=== PATIENT | male | born 1935 | race Caucasian/White ===

== ENCOUNTER → 2020-09-28 02:25 | Outpatient (CLI) | payer MEDICARE, BC, SELFPAY ==
[2020-09-29 16:34] LABS: SARS-CoV-2 RNA PCR Negative
== END ==
PROVIDERS: PCP Family Medicine; Visit Provider Internal Medicine Critical Care Medicine
DX: R68.89 Other general symptoms and signs (principal); Z20.822 Contact with and (suspected) exposure to COVID-19
CPT/HCPCS: C9803; U0003; U0005

== ENCOUNTER 2020-09-30 08:39 | Outpatient (CLI) | payer MEDICARE, BC, SELFPAY ==
--- NOTE | 2020-10-17 19:16 | WPDSLEEPSTUD ---
Sleep Study Date of Study: 09/30/20 Ordering Provider: Dontae Corral APRN Interpreting Physician: Melly Kern MD Sleep Study Type: BiPAP Titration Height: 1.78 m Weight: 117.934 kg Body Mass Index: 37.3 Neck Circumference (inches): 19 Clyde: 16 Reason for Sleep Study Patient is on BiPAP 28/03 with excellent compliance. Average usage 10.4 hours per night, predominately central events. His last sleep study was in 2013 and patient has been on the same pressure since and patient is having daytime fatigue and napping. Sleep History Gerald Bloom is 85 years old, has COPD and obstructive sleep apnea. He has been on BiPAP for several years. He is compliant however the last compliance report shows that he has increased events mainly centrals. I do not have the report to review a but this was in his note. He now presents for a repeat BiPAP titration. His last BiPAP titration was in 2013. He did not complete the sleep questionnaire. [facility] Past Medical History Medical History (Updated 10/17/20 @ 19:33 by Melly Kern MD) Anemia COPD (chronic obstructive pulmonary disease) Essential (primary) hypertension Hyperlipidemia Hypertensive chronic kidney disease with stage 1 through stage 4 chronic kidney disease, or unspecified chronic kidney disease Memory loss HEIDI (obstructive sleep apnea) Squamous cell carcinoma of skin of left cheek Type 2 diabetes mellitus without complications Vascular disease Family History Family History Sibling Patient's sister is in good health Patient's brother is in good health Social History Social History Smoking packs per day: 1 Smoking cigarettes per day: 20.0 Smoking status: Former smoker Second hand tobacco smoke exposure: No Smoking end date: 04/09/04 Alcohol intake: current Alcohol use details: rare Substance use: never Substance use type: does not use Gender identity (if verbalized by the patient): Male Medications Home Medications Medication Instructions Recorded Confirmed Type cyanocobalamin (vitamin B-12) 1,000 mcg PO DAILY 02/26/19 08/31/20 History 1,000 mcg capsule aspirin 81 mg tablet,delayed 325 mg PO DAILY tablet 03/03/19 08/31/20 History release budesonide-formoterol HFA 160 2 puff INHALATION Q12H 09/02/19 08/31/20 History mcg-4.5 mcg/actuation aerosol inhaler blood sugar diagnostic #100 each 12/29/19 08/31/20 Rx sitagliptin 100 mg tablet See Rx Instructions .ROUTE 01/02/20 08/31/20 Rx .COMPLEX #90 tablet olmesartan 40 1 tablet PO DAILY #90 tablet 01/20/20 08/31/20 Rx mg-hydrochlorothiazide 25 mg tablet metformin 500 mg tablet,extended 2,000 mg PO DAILY #360 tablet 03/19/20 08/31/20 Rx release 24 hr tamsulosin 0.4 mg capsule See Rx Instructions .ROUTE 06/24/20 08/31/20 Rx .COMPLEX #180 cap ferrous sulfate 325 mg (65 mg 325 mg .ROUTE .COMPLEX #90 tablet 07/13/20 08/31/20 Rx iron) tablet eszopiclone 2 mg tablet 2 mg PO QHS #1 tablet 08/31/20 08/31/20 Rx atorvastatin 40 mg tablet See Rx Instructions .ROUTE 09/13/20 Rx .COMPLEX #90 tablet potassium chloride 10 mEq See Rx Instructions .ROUTE 09/13/20 Rx capsule,extended release .COMPLEX #180 cap Sleep Procedure This test was performed using the Viewdle multiple channel system including EOG, EEG, submental EMG, EKG, nasal and oral airflow using thermistors and nasal pressure sensors, chest and abdominal belts for body position data, and pulse oximetry. Video monitoring was also performed. The study was scored using CMS guidelines. He self-administered eszopiclone 2 mg at the beginning of the study. The patient was started on BiPAP using a medium Quattro Mirage fullface mask and heated humidifier. At home he uses 20/12, and was started on this pressure as he could not tolerate any pressure below this. At a pressure of 21/16 he spent 3 ho
[2020-10-17 19:18] VITALS: BMI 37.3
== END 2020-10-01 06:24 | disposition home or self-care (01) ==
LOC: ANHCSM 08:41
PROVIDERS: PCP Family Medicine; Visit Provider Nurse Practitioner Family
DX: G47.33 Obstructive sleep apnea (adult) (pediatric) (principal)
CPT/HCPCS: 95811

== ENCOUNTER 2023-12-27 07:13 | Outpatient (CLI) | payer MEDICARE, BC, SELFPAY ==
[2023-12-27 18:40] LABS: Hematocrit 42.8 % (42.0-52.0); Hemoglobin 13.2 g/dL (14.0-18.0); Mean Corpuscular HGB Conc 30.8 g/dl (32-36); Mean Corpuscular Volume 94.1 fl (80-100); Mean Platelet Volume 9.9 fl (7.4-10.4); Platelet Count Result 306 k/mm3 (150-375); Red Blood Count 4.55 M/mm3 (4.6-6.20); Red Cell Distribution Width 14.1 % (11.5-14.5); White Blood Count 5.5 K/mm3 (4.5-10.0)
[2023-12-27 19:03] LABS: Alanine Aminotransferase 23 U/L (6-50); Albumin Level 4.1 g/dL (3.5-5.1); Alkaline Phosphatase 74 U/L (38-126); Anion Gap 11 mmol/L (4-12); Aspartate Amino Transferase 51 U/L (17-59); Bilirubin,Total 0.9 mg/dL (0.2-1.3); Blood Urea Nitrogen 9 mg/dL (9-20); Calcium 9.4 mg/dL (8.4-10.2); Carbon Dioxide 23 mmol/L (22-30); Chloride 103 mmol/L (98-107); Cholesterol 126 mg/dL (0-200); Estimated Glomerular Filt Rate > 60; Glucose 147 mg/dL (65-110); HDL Direct 45 mg/dL; Potassium 4.3 mmol/L (3.4-5.0); Sodium 137 mmol/L (137-145); Triglycerides 112 mg/dL (<150)
[2023-12-27 19:14] LABS: LDL Cholesterol Direct 65 mg/dL
[2023-12-27 20:11] LABS: Microalbumin Urine Random 9.1 mg/L (0-16.7)
[2023-12-27 20:13] LABS: Creatinine Urine 151.1 mg/dL
[2023-12-27 21:42] LABS: Hemoglobin A1C 6.8 % (<5.7)
== END 2023-12-27 07:14 | disposition home or self-care (01) ==
PROVIDERS: PCP Family Medicine; Visit Provider Family Medicine
DX: E11.9 Type 2 diabetes mellitus without complications (principal); I10 Essential (primary) hypertension; E78.5 Hyperlipidemia, unspecified; J44.9 Chronic obstructive pulmonary disease, unspecified; I48.91 Unspecified atrial fibrillation; Z68.36 Body mass index [BMI] 36.0-36.9, adult
CPT/HCPCS: 36415; 80053; 80061; 82043; 83036; 84443; 85027

== ENCOUNTER 2024-06-17 12:20 | Outpatient (CLI) | payer MEDICARE, BC, SELFPAY ==
--- OUTSIDE RECORDS SUMMARY | 2024-06-17 13:41 | XMS_ITS | Clinical Summary ---
Author Organization [facility] Address [address], [place] [address] Phone Care Team Providers Care Tablet Coater Name Role Phone Unavailable Primary Care Provider Unavailabl e Medications Medication Sig Dispensed Refills Start Date End Date Status aspirin 325 MG EC tablet 1 tab/cap qday 08/16/2014 Active metFORMIN (GLUCOPHAGE) 500 MG tablet 1 tab/cap bid 08/16/2014 Active glipiZIDE (GLUCOTROL XL) 2.5 MG 24 hr tablet 1 tab/cap qday 08/16/2014 A ctive atorvastatin (LIPITOR) 40 MG tablet 1 tab/cap qday 08/16/2014 Active olmesartan-hydroCHLOROthi azide (BENICAR HCT) 40-25 MG per tablet 1 tab/cap qday 08/16/2014 Active tamsulosin (FLOMAX) 0.4 MG 24 hr capsule 1 tab/cap qday 08/16/2014 Acti ve Active Problems Problem Noted Date Diagnosed Date Type 2 diabetes mellitus wit h diabetic chronic kidney disease 04/13/2015 Hypertensive chronic kidney disease with stage 1 through stage 4 chronic kidney disease, or unspecified chronic kidney disease 04/13/2015 Chronic kidney disease, stage 2 (mild) 6 Chronic kidney disease 08/16/2014 Essential (primary) hypertension 08/16/2014 Type 2 diabetes mellitus with diabetic nephropat hy 08/16/2014 Other hyperlipidemia 08/16/2014 Overview (06/22/2018): Converted unresolved ICD9, potential mismatch. Benign prostatic hyperplasia without lower urinary tract symptom 08/16/2014 Immunizations Name Administration Dates Next Due Influenza TIV (IM) 04/14/2015 Pneumococcal Conjugate 13-Valent 04/14/2015 Zoster 04/14/2015 Family History Medical History Relation Comments Kidney disease Neg Hx Kidney stone Neg Hx Social History Tobacco Use Types Packs/Day Years Used Date Smoking Tobacco: Never Assessed Sex and Gender Information Value Date Recorded Sex Assigned at Not on file Gender Identity Not on file Sexual Orientation Not on file Last Filed Vital Signs Vital Sign Reading Time Taken Comments Blood Pressure 134/76 04/14/2015 12:01 AM BUILDING STONECUTTER Sitting, Right Pulse - - Temperature 37.3 C (99.2 F) 04/14/2015 12:01 AM BUILDING STONECUTTER Respiratory Rate - - Oxygen Saturation - - Inhaled Oxygen Concentration - - Weight 133 kg (294 lb) 04/14/2015 12:01 AM BUILDING STONECUTTER Height 177.8 cm (5' 10 ) 04/14/2015 12: 01 AM BUILDING STONECUTTER Body Mass Index 42.18 04/14/2015 12:01 AM BUILDING STONECUTTER Plan of Treatment Not on file
--- OUTSIDE RECORDS SUMMARY | 2024-06-17 13:41 | XMS_ITS | Referral Summary ---
Author Organization [facility] Address [facility] [place] [address] Care Team Providers Care Graduate Recruiter Name Role Phone Bairon Wheat MD Primary Care Provider Allergies No known active allergies Medications atorvastatin (LIPITOR) 40 mg tablet Take 1 tablet (40 mg total) by mouth daily Active potassium chloride ER (KLOR-CON) 10 mEq CR tablet Take 1 tablet/caps ule (10 mEq total) by mouth daily Active metFORMIN (FORTAMET) 500 mg 24 hr tablet Take 1 tablet (500 mg total) by mouth 2 (two) times a day with meals Active tamsulosin (FLOMAX) 0.4 mg extended release capsule 1 capsule (0.4 mg total) Active SITagliptin (JANUVIA) 100 mg tabletIndicati ons:type 2 diabetes mellitus Take 1 tablet (100 mg total) by mouth daily Active apixaban (ELIQUIS) 5 mg tablet Take 1 tablet (5 mg total) by mouth 2 (two) times a day Active olmesartan-hyd rochlorothiazi de (BENICAR HCT) 40-25 mg per tablet TAKE 1 TABLET BY MOUTH DAILY 90 tablet 2 5 Active olmesartan-hyd rochlorothiazi de (BENICAR HCT) 40-25 mg per tablet Take 1 tablet by mouth daily 90 tablet 2 4 06/02/19 25 Discontinued Active Problems Problem Noted Date Diagnosed Date Hypertension associated with diabetes 02/03/2022 Mixed diabetic hyperlipidemi a associated with type 2 diabetes mellitus 02/03/2022 Chronic anticoagulation 02/03/2022 Atrial fibrillation 02/03/2022 HEIDI treated with BiPAP 02/03/2022 Class 2 severe obesity due t o excess calories with serious comorbidity and body mass index (BMI) of 35.0 to 35.9 in adult 02/03/2022 Social History Tobacco Use Types Packs/Day Years Used Date Smoking Tobacco: Former Cigarettes Q uit: 1994 Smokeless Tobacco: Never Tobacco Cessation:Counseling Given: Not Answered Sex and Gender Information Value Date Recorded Sex Assigned at Not on file Legal Sex Male 1:07 PM DIRECT SERVICE PROVIDER Gender Identity Not on file Sexual Orientation Not on file Last Filed Vital Signs Vital Sign Reading Time Taken Comments Blood Pressure 122/56 02/19/2024 9:41 AM DIRECT SERVICE PROVIDER Pulse 102 02/19/2024 9:41 AM DIRECT SERVICE PROVIDER Temperature - - Respiratory Rate - - Oxygen Saturation 96% 02/19/2024 9:41 AM DIRECT SERVICE PROVIDER Inhaled Oxygen Concentration - - Weight 117 kg (258 lb) 02/19/2024 9:41 AM DIRECT SERVICE PROVIDER Height 180.3 cm (5' 11 ) 02/19/2024 9:41 AM DIRECT SERVICE PROVIDER Body Mass Index 35.98 02/19/2024 9:41 AM DIRECT SERVICE PROVIDER Plan of Treatment Not on file Procedures Procedure Name Priority Date/Time Associated Diagnosis Comments LIPID PANEL Routine 12/27/2023 4:01 PM CDT from Last 3 Months or Most Recently Relevant to Health Maintenance Results * (ABNORMAL) Lipid panel (12/27/2023 4:01 PM CDT) SCRIBED Cholesterol, Total 126 0 - 200 EXTERNAL LAB SCRIBED HDL 45 40 - 100 EXTERNAL LAB SCRIBED LDL 65 0 - 100 EXTERNAL LAB SCRIBED Triglycerides 112 0 - 150 EXTERNAL LAB Blood us Historical Provider LAB BLOOD ORDERABLES Edit ed Result - Final EXTERNAL LAB from Last 3 Months or Most Recently Relevant to Health Maintenance Insurance [employer] MEDICARE [employer] MEDICARE Care Teams Graduate Recruiter Relationship Specialty Start Date End Date Bairon Wheat MD [address] [facility] [address] [place] [address] PCP - General Family Medicine 03/14/22
--- OUTSIDE RECORDS SUMMARY | 2024-06-17 13:41 | XMS_ITS | Clinical Summary ---
Author Organization [facility] Address [address] [place] [address] Care Team Providers Care Associate Property Manager Name Role Phone Bairon Wheat MD Primary [...] of 35.0 to 35.9 in adult 02/03/2022 Surgical History Surgery Date Site/Laterality Comments BACK SURGERY Medical History Medical History Date Comments Atrial fibrillation (HCC) Anemia COPD (chronic obstructive pulmonary disease) (HC C) Hyperlipidemia Sleep apnea Chronic kidney disease Squamous cell carcinoma of skin of left cheek Diabetes mellitus (HCC) Family History Medical History Relation Name Comments ulcer Father Diabetes Mother Relation Name Status Comments Father Mother Social History Tobacco Use Types Packs/Day Years Used Date Smoking Tobacco: Former Cigarettes Q uit: 1994 Smokeless Tobacco: Never Tobacco Cessation:Counseling Given: Not Answered Sex and Gender Information Value Date Recorded Sex Assigned at Not on file Legal Sex Male 1:07 PM IMPREGNATOR AND DRIER Gender Identity Not on file Sexual Orientation Not on file Obstetrics History Last Filed Vital Signs Vital Sign Reading Time Taken Comments Blood Pressure 122/56 02/19/2024 9:41 AM IMPREGNATOR AND DRIER Pulse 102 02/19/2024 9:41 AM IMPREGNATOR AND DRIER Temperature - - Respiratory Rate - - Oxygen Saturation 96% 02/19/2024 9:41 AM IMPREGNATOR AND DRIER Inhaled Oxygen Concentration - - Weight 117 kg (258 lb) 02/19/2024 9:41 AM IMPREGNATOR AND DRIER Height 180.3 cm (5' 11 ) 02/19/2024 9:41 AM IMPREGNATOR AND DRIER Body Mass Index 35.98 02/19/2024 9:41 AM IMPREGNATOR AND DRIER Plan of Treatment Health Maintenance Due Date Last Done Comments Albumin Creatinine Ratio, Urine 1936 Depression Screening 1936 Fall Risk Assessment 1936 Hemoglobin A1C 1936 eGFR 1936 Dilated Eye Exam 1936 Foot Exam 1936 DTaP/Tdap/Td Vaccine (1 - Tdap) 01/02/1947 Hepatitis B Screening 01/02/1954 Well Visit 65+ 01/02/2001 Zoster Vaccine (2 of 3) 06/09/2015 04/14/2015 Pneumococcal vaccine 65+ (2 of 2 - PPSV23) 01/17/2018 11/22/2017, 04/14/2015 Covid-19 Vaccine (5 - 2023-2 5 season) 2023 01/08/2022, 2021, 06/01/2020, Additional history exists Influenza Vaccine (#1) 2023 , 12/25/2020, 11/28/2019, Additional history exists Lipid Panel 12/26/2024 12/27/2023, 04/0 05/2023, 02/03/2022 Procedures Procedure Name Priority Date/Time Associated Diagnosis [...] Most Recently Relevant to Health Maintenance Insurance [facility] MEDICARE TRADITIONAL OOS MEDICARE Care Teams Associate Property Manager Relationship Specialty Start Date End Date Bairon Wheat MD [address] [place] [address] PCP - General Family Medicine 03/14/22
[2024-06-17 20:02] LABS: Alanine Aminotransferase 19 U/L (6-50); Albumin Level 4.1 g/dL (3.5-5.1); Alkaline Phosphatase 69 U/L (38-126); Anion Gap 10 mmol/L (4-12); Aspartate Amino Transferase 41 U/L (17-59); Blood Urea Nitrogen 12 mg/dL (9-20); Calcium 9.3 mg/dL (8.4-10.2); Carbon Dioxide 23 mmol/L (22-30); Chloride 106 mmol/L (98-107); Estimated Glomerular Filt Rate > 60; Glucose 224 mg/dL (65-110); Potassium 4.6 mmol/L (3.4-5.0); Sodium 139 mmol/L (137-145)
[2024-06-17 20:07] LABS: Creatinine Urine 129.9 mg/dL
[2024-06-17 20:12] LABS: MALB Creatinine Ratio 8.1 mg/g (0-30); Microalbumin Urine Random 10.5 mg/L (0-16.7)
[2024-06-17 20:30] LABS: Prostate Specific Antigen 0.7 ng/mL (< OR = 4.0)
== END 2024-06-17 12:21 | disposition home or self-care (01) ==
PROVIDERS: PCP Family Medicine; Visit Provider Family Medicine
DX: E11.9 Type 2 diabetes mellitus without complications (principal); I10 Essential (primary) hypertension; E78.5 Hyperlipidemia, unspecified; J44.9 Chronic obstructive pulmonary disease, unspecified; Z00.00 Encounter for general adult medical examination without abnormal findings; R35.1 Nocturia
CPT/HCPCS: 36415; 80053; 82043; 83036; 84153

== ENCOUNTER 2025-02-16 07:48 | Outpatient (CLI) | payer MEDICARE, BC, SELFPAY ==
--- OUTSIDE RECORDS SUMMARY | 2009-07-08 03:00 | XMS_ITS | Continuity of Care Document ---
Author Organization [facility] [place], [place] Address [address] [place] [address] Phone Care Team Providers Care Poultry Pinner Name Role Phone Kessler OD, Elroy Unavailable Unavailable Procedures Procedure Date Eye Exam & Treatment Refraction Dilated Retinal Exam W Interpretation Ap No Evidence Of Retinopathy In Prior Year TF Polycarb Sphcyl [place] To +/-4d .12-2d Vision Svcs Frames Purchases Tax - Medical Eye Exam & Treatment Dilated Retinal Exam W Interpretation Ma No Script Eye Exam & Treatment No Evidence Of Retinopathy In Prior Year TF Polycarb Sphcyl [place] To +/-4d .12-2d Frames Deluxe Tint Plastic, Non-Ruth Tax - Medical Eye Exam & Treatment Advance Directives Directive Yes / No Effective Date File Name No Information Encounters Encounter Description Practice Location Reason(s) For Visit Diagnoses Date Provider Providers Copied on Encounter [facility], [address], [place], [place], [id number], [place] tel:[phone] [facility] No Information 1-201 0 Kessler OD Elroy. [address] , [address], [place], [address], [place]. tel:[phone] Referring Provider: Aby Gamboa, [address] [place], [address]. tel:[phone] [facility], [address], [place], [place], [address], [place] tel:[phone] [facility] No Information Apr-0 1-201 0 [facility] . [address], [address], [place], [address], . tel:[phone] Referring Provider: Elroy Kessler OD A, [address], [place], [address]. tel:[phone] g Provider: Brooke Pike, [address] [place], [address]. tel:[phone] [facility], [address], [place], [place], [id number], [place] tel:[phone] [facility] No Information Mar-2 7-200 9 Kessler OD Elroy. [address], [address], [place], [address], [place]. tel:[phone] Referring Provider: Aby Gamboa, [address], [place], [address]. tel:[phone] [facility], [address], [place], [place], [id number], [place] tel:[phone] [facility] No Information Mar-2 8-200 8 Kessler OD Elroy. [address], [address], [place], [address], [place]. tel:[phone] Referring Provider: Aby Gamboa, [address], [place], [address]. tel:[phone] [facility], [address], [place], [place], [id number], [place] tel:[phone] [facility] No Information Mar-2 9-200 7 [facility] . [address], [address], [place], [place], [address], [place]. tel:[phone] Referring Provider: Elroy Kessler OD Noel, [address], [place], [address]. tel:[phone] tony Provider: Tangela Nickymane, [address] [place], [address]. tel:[phone] [facility], [address], [place], [place], [address], [place] tel:[phone] [facility] No Information Jun-2 9-200 7 Kessler ALPA Abbasi. [address] , [address], [place], [address], [place]. tel:[phone] Referring Provider: Aby Gamboa, [address] [place], [address]. tel:[phone] Family History Family Member Type Diagnosis Age At Onset No Information Payers Payer name Insurance type Covered democrat ID Authoriza tion(s) [place] [id number] [facility] [id number] Social History Type Description Quantity Date Captured Comments Sex Male Smoking Status No Information Chief Complaint And Reason For Visit No Information Reason For Referral Reason For Referral No Information History Of Present Illness Encounter Date Complaint History Of Prese nt Illness No Information Functional Status Date Functional Assessmen t No Information Instructions Date Instruction Additional Infor mation No Information Assessments Type Assessment Date No Information Patient Care Teams Name Effective Dates (start - stop) Status Members No Information
--- OUTSIDE RECORDS SUMMARY | 2025-02-16 07:53 | XMS_ITS | Clinical Summary ---
Author Organization [facility] Address [facility] [place] [address] Care Team Providers Care Medicaid Business Analyst Name Role Phone Bairon Wheat MD Primary Care Provider Allergies No known active allergies Medications atorvastatin (LIPITOR) 40 mg tablet Take 1 tablet (40 mg total) by mouth daily Active potassium chloride ER (KLOR-CON) 10 mEq CR tablet Take 1 tablet/capsu le (10 mEq total) by mouth daily Active metFORMIN (FORTAMET) 500 mg 24 hr tablet Take 1 tablet (500 mg total) by mouth 2 (two) times a day with meals Active tamsulosin (FLOMAX) 0.4 mg extended release capsule 1 capsule (0.4 mg total) Active SITagliptin (JANUVIA) 100 mg tabletIndicatio ns:type 2 diabetes mellitus Take 1 tablet (100 mg total) by mouth daily Active apixaban (ELIQUIS) 5 mg tablet Take 1 tablet (5 mg total) by mouth 2 (two) times a day Active olmesartan-hydr ochlorothiazide (BENICAR HCT) 40-25 mg per tablet TAKE 1 TABLET BY MOUTH DAILY 90 tablet 2 06/02/2024 Active Active Problems Problem Noted Date Diagnosed Date Atypical chest pain 10/30/2024 Hypertension associated with diabetes 02/03/2022 Mixed diabetic [...] (HCC) Anemia COPD (chronic obstructive pulmonary disease) Hyperlipidemia Sleep apnea Chronic kidney disease Squamous cell carcinoma of skin of left cheek Diabetes mellitus Family History Medical History Relation Name Comments ulcer Father Diabetes Mother Relation Name Status Comments Father Mother Social History Tobacco Use Types Packs/Day Years Used Date Smoking Tobacco: Former Cigarettes Q uit: 1994 Smokeless Tobacco: Never Tobacco Cessation:Counseling Given: Not Answered Sex and Gender Information Value Date Recorded Sex Assigned at Not on file Legal Sex Male 1:07 PM FLEET COORDINATOR Gender Identity Not on file Sexual Orientation Not on file Last Filed Vital Signs Vital Sign Reading Time Taken Comments Blood Pressure 122/56 10/30/2024 2:42 PM CDT Pulse 82 10/30/2024 2:42 PM CDT Temperature - - Respiratory Rate - - Oxygen Saturation 97% 10/30/2024 2:42 PM CDT Inhaled Oxygen Concentration - - Weight 119.7 kg (264 lb) 10/30/2024 2:42 PM CDT Height 180.3 cm (5' 11) 10/30/2024 2:42 PM CDT Body Mass Index 36.82 10/30/2024 2:42 PM CDT Plan of Treatment Health Maintenance Due Date Last Done Comments Albumin Creatinine Ratio, Urine 1936 Depression Screening 1936 Fall Risk Assessment 1936 Hemoglobin A1C 1936 eGFR 1936 Dilated Eye Exam 1936 Foot Exam 1936 DTaP/Tdap/Td Vaccine (1 - Tdap) 01/02/1947 Hepatitis B Screening 01/02/1954 Well Visit 65+ 01/02/2001 Zoster Vaccine (2 of 3) 06/09/2015 04/14/2015 Pneumococcal vaccine 65+ (2 of 2 - PPSV23, PCV20, or PCV21) 01/17/2018 11/22/2017, 04/14/2015 Covid-19 Vaccine (5 - 2024-2 6 season) 2024 01/08/2022, 2021, 06/01/2020, Additional history exists Influenza Vaccine (#1) 2024 2, 12/25/2020, 11/28/2019, Additional history exists Lipid Panel [...] Most Recently Relevant to Health [facility] [place] TRADITIONAL [employer]OS MEDICARE Care Teams Medicaid Business Analyst Relationship Specialty Start Date End Date Bairon Wheat MD [address] [facility] [address] [place] [address] PCP - General Family Medicine 03/14/22
--- OUTSIDE RECORDS SUMMARY | 2025-02-16 07:53 | XMS_ITS | Clinical Summary ---
Author Organization [facility] Address [address], [place] [address] Phone Care Team Providers Care Electrical Estimator Name Role Phone Unavailable Primary Care Provider Unavailabl e Medications aspirin 325 MG EC tablet 1 tab/cap qday 08/16/2014 Active metFORMIN (GLUCOPHAGE) 500 MG tablet 1 tab/cap bid 08/16/2014 Active glipiZIDE (GLUCOTROL XL) 2.5 MG 24 hr tablet 1 tab/cap qday 08/16/2014 Active atorvastatin (LIPITOR) 40 MG tablet 1 tab/cap qday 08/16/2014 Active olmesartan-hydro CHLOROthiazide (BENICAR HCT) 40-25 MG per tablet 1 tab/cap qday 08/16/2014 Active tamsulosin (FLOMAX) 0.4 MG 24 hr capsule 1 tab/cap qday 08/16/2014 Active Active Problems Problem Noted Date Diagnosed [...] without lower urinary tract symptom 08/16/2014 Immunizations Immunization Administration Dates Next Due Influenza TIV (IM) 04/14/2015 Pneumococcal Conjugate 13-Valent 04/14/2015 Zoster 04/14/2015 Family History Medical History Relation Comments Kidney disease Neg Hx Kidney stone Neg Hx Social History Tobacco Use Types Packs/Day Years Used Date Smoking Tobacco: Never Assessed Sex and Gender Information Value Date Recorded Sex Assigned at Not on file Legal Sex Male 9:22 AM MST Gender Identity Not on file Sexual Orientation Not on file Last Filed Vital Signs Vital Sign Reading Time Taken Comments Blood Pressure 134/76 04/14/2015 12:01 AM EFFICIENCY MINER Sitting, Right Pulse - - Temperature 37.3 C (99.2 F) 04/14/2015 12:01 AM EFFICIENCY MINER Respiratory Rate - - Oxygen Saturation - - Inhaled Oxygen Concentration - - Weight 133 kg (294 lb) 04/14/2015 12:01 AM EFFICIENCY MINER Height 177.8 cm (5' 10) 04/14/2015 12: 01 AM EFFICIENCY MINER Body Mass Index 42.18 04/14/2015 12:01 AM EFFICIENCY MINER Plan of Treatment Not on file
[2025-02-16 18:46] LABS: Hematocrit 45.6 % (42.0-52.0); Hemoglobin 14.1 g/dL (14.0-18.0); Mean Corpuscular HGB Conc 30.9 g/dl (32-36); Mean Corpuscular Hemoglobin 28.5 pg (26-34); Mean Corpuscular Volume 92.3 fl (80-100); Platelet Count Result 285 k/mm3 (150-375); Red Blood Count 4.94 M/mm3 (4.6-6.20); White Blood Count 6.1 K/mm3 (4.5-10.0)
[2025-02-16 19:01] LABS: Alanine Aminotransferase 24 U/L (6-50); Albumin Level 4.4 g/dL (3.5-5.1); Alkaline Phosphatase 79 U/L (38-126); Anion Gap 10 mmol/L (4-12); Aspartate Amino Transferase 67 U/L (17-59); Bilirubin,Total 1.4 mg/dL (0.2-1.3); Blood Urea Nitrogen 8 mg/dL (9-20); Calcium 9.3 mg/dL (8.4-10.2); Carbon Dioxide 23 mmol/L (22-30); Chloride 103 mmol/L (98-107); Cholesterol 126 mg/dL (0-200); Estimated Glomerular Filt Rate > 60; Glucose 148 mg/dL (65-110); HDL Direct 40 mg/dL; Potassium 4.1 mmol/L (3.4-5.0); Sodium 136 mmol/L (137-145); Total Protein 7.7 g/dL (6.3-8.2); Triglycerides 122 mg/dL (<150)
[2025-02-16 19:37] LABS: Thyroid Stimulating Hormone 1.390 uIU/mL (0.465-4.680)
[2025-02-16 20:18] LABS: Hemoglobin A1C 7.3 % (<5.7)
== END 2025-02-16 07:49 | disposition home or self-care (01) ==
PROVIDERS: PCP Family Medicine; Visit Provider Physician Assistant Medical
DX: E78.5 Hyperlipidemia, unspecified (principal); E11.9 Type 2 diabetes mellitus without complications; I10 Essential (primary) hypertension
CPT/HCPCS: 36415; 80053; 80061; 83036; 84443; 85027

== ENCOUNTER 2025-03-12 08:27 | Emergency (ER) | payer MEDICARE, BC, SELFPAY ==
--- NOTE | ~2025-03-12 | CT_ITS ---
CT abdomen pelvis w con Clinical History: constipation x1 week, pain . Comparison: None Technique: Axial images lung bases to symphysis pubis IV contrast information not listed in PACS Coronal, sagittal reformats CT images acquired with automatic exposure control for dose reduction DLP: 1353 mGy-cm Findings: Lung bases: Clear. Visualized heart and pericardium: Unremarkable. Liver: Steatosis. Gallbladder: Stones. Spleen: Several small hypodense foci, statistically benign. Pancreas: Unremarkable. Adrenal glands: Unremarkable. Kidneys: Right kidney- No hydronephrosis. No renal stones. Several cysts. Left kidney- No hydronephrosis. No renal stones. A few cysts. Distal esophagus/stomach: Unremarkable. Small bowel loops: Normal caliber and wall thickness. Colon: Normal caliber and wall thickness. Normal RLQ appendix. Moderate volume stool. Nodes: No enlarged nodes. Peritoneum: No ascites. No free air. Urinary bladder: Unremarkable. Prostate: Enlarged. Bones: No acute bony abnormality. Superior endplate height loss T12, T8, both probably chronic. Soft tissues: Small umbilical hernia with fat. Aorta: No aneurysm or dissection. Atherosclerotic disease. IVC: Unremarkable. Main portal vein/SMV/splenic vein: Patent. IMPRESSION: 1. No acute findings. Reviewed, dictated and finalized at location R. RAIL HELPER IMPRESSION: 1. No acute findings.
[2025-03-12 08:41] VITALS: BP 124/74; PULSE 80; RESP 18; TEMP 36.4; O2SAT 99
--- OUTSIDE RECORDS SUMMARY | 2025-03-12 08:42 | XMS_ITS | Clinical Summary ---
Author Organization [facility] Address [address], [place] [address] Phone Care Team Providers Care Manufacturing Laborer Name Role Phone Unavailable Primary Care Provider [...] Comments Blood Pressure 134/76 04/14/2015 12:01 AM PRODUCTION MACHINE TENDER Sitting, Right Pulse - - Temperature 37.3 C (99.2 F) 04/14/2015 12:01 AM PRODUCTION MACHINE TENDER Respiratory Rate - - Oxygen Saturation - - Inhaled Oxygen Concentration - - Weight 133 kg (294 lb) 04/14/2015 12:01 AM PRODUCTION MACHINE TENDER Height 177.8 cm (5' 10) 04/14/2015 12: 01 AM PRODUCTION MACHINE TENDER Body Mass Index 42.18 04/14/2015 12:01 AM PRODUCTION MACHINE TENDER Plan of Treatment Not on file
--- OUTSIDE RECORDS SUMMARY | 2025-03-12 08:42 | XMS_ITS | Clinical Summary ---
Author Organization [facility] Address [facility] [place] [address] Care Team Providers Care Storage Engineer Name Role Phone Bairon Wheat MD Primary [...] on file Legal Sex Male 1:07 PM SCHOOL ATHLETIC DIRECTOR Gender Identity Not on file Sexual Orientation [...] Most Recently Relevant to Health Maintenance [facility] [place] TRADITIONAL OOS MEDICARE Care Teams Storage Engineer Relationship Specialty Start Date End Date Bairon Wheat MD [address] [facility] [address] [place] [address] PCP - General Family Medicine 03/14/22
[2025-03-12 09:50] LABS: Hematocrit 39.5 % (42.0-52.0); Hemoglobin 12.6 g/dL (14.0-18.0); Immature Granulocyte Percent A 1.2 % (0-0.5); Lymphocytes Absolute Auto 0.96 K/mm3 (0.9-3.2); Mean Corpuscular HGB Conc 31.9 g/dl (32-36); Mean Corpuscular Hemoglobin 28.3 pg (26-34); Mean Corpuscular Volume 88.6 fl (80-100); Nucleated Red Blood Cells Absolute Auto 0.000 K/mm3 (0.0-0.012); Nucleated Red Blood Cells Perc 0.0 % (0.0-0.2); Platelet Count Result 256 k/mm3 (150-375); Red Blood Count 4.46 M/mm3 (4.6-6.20); White Blood Count 5.1 K/mm3 (4.5-10.0)
[2025-03-12 09:59] LABS: Alanine Aminotransferase 19 U/L (6-50); Albumin Level 3.9 g/dL (3.5-5.1); Alkaline Phosphatase 72 U/L (38-126); Anion Gap 6 mmol/L (4-12); Aspartate Amino Transferase 19 U/L (17-59); Bilirubin,Total 1.2 mg/dL (0.2-1.3); Blood Urea Nitrogen 10 mg/dL (9-20); Calcium 9.1 mg/dL (8.4-10.2); Carbon Dioxide 24 mmol/L (22-30); Chloride 107 mmol/L (98-107); Estimated CRCL calculation 57 ml/min; Estimated Glomerular Filt Rate > 60; Glucose 178 mg/dL (65-110); Lipase 149 U/L (23-300); Potassium 4.5 mmol/L (3.4-5.0); Sodium 137 mmol/L (137-145); Total Protein 6.8 g/dL (6.3-8.2)
--- OUTSIDE RECORDS SUMMARY | 2025-03-12 10:13 | XMS_ITS | Clinical Summary ---
Author Organization [facility] Address [facility] [place] [address] Care Team Providers Care Licensed Direct Entry Midwife Name Role Phone Bairon Wheat MD Primary [...] on file Legal Sex Male 1:07 PM DRAMATIC DIRECTOR Gender Identity Not on file Sexual [...] Most Recently Relevant to Health Maintenance Insurance [facility] MEDIC[employer] Care Teams Licensed Direct Entry Midwife Relationship Specialty Start Date End Date Bairon Wheat MD [address] [facility] [address] [place] [address] PCP - General Family Medicine 03/14/22
--- OUTSIDE RECORDS SUMMARY | 2025-03-12 10:13 | XMS_ITS | Clinical Summary ---
Author Organization [facility] Address [address] [address] Phone Care Team Providers Care Flame Gouger Name Role Phone Unavailable Primary Care Provider [...] Comments Blood Pressure 134/76 04/14/2015 12:01 AM COLOR EXPERT Sitting, Right Pulse - - Temperature 37.3 C (99.2 F) 04/14/2015 12:01 AM COLOR EXPERT Respiratory Rate - - Oxygen Saturation - - Inhaled Oxygen Concentration - - Weight 133 kg (294 lb) 04/14/2015 12:01 AM COLOR EXPERT Height 177.8 cm (5' 10) 04/14/2015 12: 01 AM COLOR EXPERT Body Mass Index 42.18 04/14/2015 12:01 AM COLOR EXPERT Plan of Treatment Not on file
--- NOTE | 2025-03-12 10:27 | ED.ABDPAIN ---
HPI - Abdominal Pain General Chief Complaint: Abdominal Pain Stated Complaint: CONSTIPATION [id number] Time Seen by Provider: 03/12/25 09:02 Source: patient Mode of arrival: ambulatory Limitations: no limitations History of Present Illness HPI narrative: Patient is an 89-year-old male who presents the ED with report of constipation. Patient reports he has been constipated since last week, before . He does have history of previous constipation issues, but denies ever going this long. Has been taking MiraLax and Dulcolax at home without improvement. Does feel bloated. Began having some discomfort throughout his lower back and lower abdomen last night in prompted here for further evaluation. Denies nausea, vomiting, fevers. Related Data Allergies Allergy/AdvReac Type Severity Reaction Status Date / Time No Known Allergies Allergy Unknown Verified 03/12/25 08:28 Review of Systems Review of Systems: All systems reviewed & are unremarkable except as noted in HPI. All systems reviewed & are unremarkable except as noted in HPI and below PMFSH Past Medical History Medical History Afib Afib BMI 36.0-36.9,adult COPD (chronic obstructive pulmonary disease) Anemia Hypertensive chronic kidney disease with stage 1 through stage 4 chronic kidney disease, or unspecified chronic kidney disease Essential (primary) hypertension Hyperlipidemia Memory loss HEIDI (obstructive sleep apnea) Squamous cell carcinoma of skin of left cheek Type 2 diabetes mellitus without complications Vascular disease Family History Family History Sibling Patient's sister is in good health Patient's brother is in good health Social History Social History Smoking packs per day: 1 Smoking cigarettes per day: 20.0 Smoking status: Former smoker Second hand tobacco smoke exposure: No Smoking end date: 04/09/04 Alcohol intake: current Alcohol use details: rare Substance use: never Substance use type: does not use Living arrangements: with family Occupation/Education: retired Gender identity (if verbalized by the patient): Male Exam Narrative: GENERAL: Elderly but well appearing, obese with BMI of 36.7, non-toxic, in no acute distress. HEAD: Normocephalic, atraumatic. RESPIRATORY: Airway patent, respirations nonlabored. Clear to auscultation bilaterally, no rales, rhonchi, wheezing. CARDIOVASCULAR: Regular rate and rhythm without murmurs, rubs, or gallops. ABDOMINAL: Soft, mild tenderness throughout left lower abdomen, nondistended. Hypoactive BS. MUSCULOSKELETAL: Moves all extremities. No gross deformities. SKIN: Warm, dry, normal color. NEURO: A&O X3. Speech clear. Cranial nerves II-XII grossly intact. No ataxic movements. PSYCHIATRIC: Appropriate mood and affect. Normal interaction. Course Vital Signs Vital signs: Vital Signs Temperature 97.6 F 03/12/25 08:41 Pulse Rate 80 03/12/25 08:41 Respiratory Rate 18 03/12/25 08:41 Blood Pressure 124/74 03/12/25 08:41 Pulse Oximetry 99 03/12/25 08:41 Oxygen Delivery Room Air 03/12/25 08:41 Temperature 97.6 F 03/12/25 08:41 Pulse Rate 75 03/12/25 11:59 Respiratory Rate 18 03/12/25 11:59 Blood Pressure 136/65 03/12/25 11:59 Pulse Oximetry 97 03/12/25 11:59 Oxygen Delivery Room Air 03/12/25 08:41 MDM MDM Narrative Medical decision making narrative: Patient presented to ED with 1+ week history of constipation. Reports history of similar constipation. Has been taking [id number] medications without improvement. Reports some lower abdominal/lower back discomfort. Vital signs are stable upon arrival. Patient in no acute distress. Cbc without leukocytosis. H&H is stable, consistent with previous records. CMP unremarkable. Lactic acid within normal range at 1.8. CT scan abdomen/pelvis was obtained and showing moderate volume stool, but otherwise no acute abnormalities. No evidence of bowel obstruction, infection. Discussed imaging findings with patient, overall reassuring workup. Discussed constipation management. Offered enema. Patient would like to proceed with this. Tolerated this well. Feeling improved. States he had a supreme bowel movement. Feels ready to go home. Discussed further constipation management at home, given strict return precautions. Recommended f/u with PCP. Patient in agreement with plan. D/C in stable condition. Differential Diagnosis Differential Diagnosis: constipation, gastroenteritis, colitis, obstruction, mass, diverticulitis Medical Records I have reviewed the following patient records and this information was taken into consideration when formulating the assessment and plan.: previous labs, previous ER visits, previous hospitalizations and previous clinic visits Lab Data MDM Lab Attestation statement: I personally reviewed the patient's lab results. 03/12/25 09:39 03/12/25 09:39 Labs: Lab Results 03/12/25 Range/Units 09:39 WBC 5.1 (4.5-10.0) K/mm3 RBC 4.46 L (4.6-6.20) M/mm3 Hgb 12.6 L (14.0-18.0) g/dL Hct 39.5 L (42.0-52.0) % MCV 88.6 (80-100) fl MCH 28.3 (26-34) pg MCHC 31.9 L (32-36) g/dl RDW 13.4 (11.5-14.5) % Plt Count 256 (150-375) k/mm3 MPV 9.8 (7.4-10.4) fl Immature Gran % (Auto) 1.2 H (0-0.5) % Neut % (Auto) 69.0 (45.5-73.1) % Lymph % (Auto) 18.7 (18.3-44.2) % [place] % (Auto) 8.9 H (2.6-8.5) % Eos % (Auto) 1.6 (0-4.4) % Baso % (Auto) 0.6 (0.2-1.2) % Lymph # (Auto) 0.96 (0.9-3.2) K/mm3 [place] # (Auto) 0.5 (0.1-0.6) K/mm3 Eos # (Auto) 0.1 (0-0.3) K/mm3 Baso # (Auto) 0.0 (0.0-0.1) K/mm3 Abs Immat Gran (auto) 0.06 H (0.00-0.031) K/mm3 Absolute Neuts (auto) 3.6 (1.3-6.7) K/mm3 Absolute Nucleated RBC 0.000 (0.0-0.012) K/mm3 Nucleated RBC % 0.0 (0.0-0.2) % Sodium 137 (137-145) mmol/L Potassium 4.5 (3.4-5.0) mmol/L Chloride 107 (98-107) mmol/L Carbon Dioxide 24 (22-30) mmol/L Anion Gap 6 (4-12) mmol/L BUN 10 (9-20) mg/dL Creatinine 0.99 (0.7-1.3) mg/dL Estim Creat Clear Calc 57 ml/min Estimated GFR > 60 (59 - ) Glucose 178 H (65-110) mg/dL Lactic Acid 1.8 (0.7-2.0) mmol/L Calcium 9.1 (8.4-10.2) mg/dL Total Bilirubin 1.2 (0.2-1.3) mg/dL AST 19 (17-59) U/L ALT 19 (6-50) U/L Alkaline Phosphatase 72 (38-126) U/L Total Protein 6.8 (6.3-8.2) g/dL Albumin 3.9 (3.5-5.1) g/dL Lipase 149 (23-300) U/L Imaging Data Attestation: I personally reviewed and interpreted this imaging study as follows: Radiologist's impression: ITS Impressions Abdomen/Pelvis CT 03/12/25 10:41 IMPRESSION: 1. No acute findings. Discharge Plan Discharge Clinical Impression: Constipation Qualifiers: Constipation type: unspecified constipation type Qualified Code(s): K59.00 - Constipation, unspecified Patient Disposition: Home Condition: Stable Instructions: Antibiotic Form, Constipation (ED), High Fiber Diet (ED) Additional Instructions: Continue MiraLax and Dulcolax up to twice daily over the next 1 week for constipation. If you develop diarrhea, you may decrease this to once per day or every other day. Stay very well hydrated. Recommend plenty of fluids. Recommend high-fiber diet. Follow-up closely with your primary care doctor for further evaluation. Return to the ED if you experience worsening or severe symptoms, severe constipation, severe pain, unable to keep down food or drink, fevers, rectal bleeding, dark black stool, or any other symptoms of concern. Patient Language: Upper Sorbian Prescriptions: No Action albuterol sulfate 90 mcg/actuation HFA aerosol inhaler 1 - 2 puff inhalation Q4-6H PRN (Reason: shortness of breath or wheezing) Qty: 8.5 2RF olmesartan-hydrochlorothiazide [Benicar HCT] 40-25 mg tablet 1 tablet PO DAILY Qty: 90 2RF Eliquis 5 mg tablet See Rx Instructions .ROUTE .COMPLEX Qty: 180 2RF Dose Instruction: TAKE 1 TABLET BY MOUTH TWICE DAILY Rx Instructions: TAKE 1 TABLET BY MOUTH TWICE DAILY tamsulosin 0.4 mg capsule See Rx Instructions .ROUTE .COMPLEX Qty: 180 2RF Dose Instruction: TAKE 2 CAPSULES BY MOUTH EVERY DAY 30 MINUTES AFTER THE SAME MEAL Rx Instructions: TAKE 2 CAPSULES BY MOUTH EVERY DAY 30 MINUTES AFTER THE SAME MEAL metformin 500 mg tablet extended release 24 hr 2,000 mg PO DAILY Qty: 360 2RF OneTouch Ultra Test Strip See Rx Instructions .ROUTE .COMPLEX Qty: 100 3RF Dose Instruction: USE TO TEST ONCE DAILY Rx Instructions: USE TO TEST ONCE DAILY Januvia 100 mg tablet See Rx Instructions .ROUTE .COMPLEX Qty: 90 1RF Dose Instruction: TAKE 1 TABLET BY MOUTH EVERY DAY Rx Instructions: TAKE 1 TABLET BY MOUTH EVERY DAY atorvastatin 40 mg tablet See Rx Instructions .ROUTE .COMPLEX Qty: 90 2RF Dose Instruction: TAKE 1 TABLET BY MOUTH DAILY Rx Instructions: TAKE 1 TABLET BY MOUTH DAILY potassium chloride 10 mEq capsule, extended release See Rx Instructions .ROUTE .COMPLEX Qty: 180 2RF Dose Instruction: TAKE 2 CAPSULES BY MOUTH DAILY Rx Instructions: TAKE 2 CAPSULES BY MOUTH DAILY Follow-up/Referrals: Bairon Wheat MD [Primary Care Provider, Family Practice] Time of Disposition: 12:49
[2025-03-12 11:59] VITALS: BP 136/65; PULSE 75; RESP 18; O2SAT 97
[2025-03-12] MEDS: BISACODYL 5 MG TABLET EC PO (12:45)
[2025-03-12 13:00] VITALS: BP 138/56; PULSE 70; RESP 16; O2SAT 97
== END 2025-03-12 13:05 | disposition home or self-care (01) ==
PROVIDERS: Emergency Provider Physician Assistant; PCP Family Medicine
DX: K59.00 Constipation, unspecified (principal); I48.91 Unspecified atrial fibrillation; I12.9 Hypertensive chronic kidney disease with stage 1 through stage 4 chronic kidney disease, or unspecified chronic kidney disease; E11.22 Type 2 diabetes mellitus with diabetic chronic kidney disease; N18.9 Chronic kidney disease, unspecified; E78.5 Hyperlipidemia, unspecified; J44.9 Chronic obstructive pulmonary disease, unspecified; D64.9 Anemia, unspecified; G47.33 Obstructive sleep apnea (adult) (pediatric); I99.9 Unspecified disorder of circulatory system; Z85.828 Personal history of other malignant neoplasm of skin; Z87.891 Personal history of nicotine dependence; Z79.01 Long term (current) use of anticoagulants; Z79.84 Long term (current) use of oral hypoglycemic drugs; Z79.899 Other long term (current) drug therapy
CPT/HCPCS: 36415; 74177; 80053; 83605; 83690; 85025; 99284; A9270; Q9967